=== PATIENT | male | born 1940 | race African-American/Black ===

== ENCOUNTER 2016-09-07 16:14 | Inpatient (IN) | payer MEDICARE, MEDICAID ==
[~2016-09-07] VITALS: Ht 185.4 cm; Wt 95.3 kg
[2016-09-07] VITALS (8 sets, daily range): BP systolic 64–107; BP diastolic 17–60
[~2016-09-07 16:14] MED LIST: ADVIL100 M2 ORAL; AMBIEN10 MG ORAL; CIPROFLOXACIN250 MG PO; DOCUSATE SODIU100 MG GT; DOCUSATE SODIU100 MG ORAL; FERROUS SULFAT325 MG ORAL; HYTRIN5 MG PO; IBUPROFEN200 M2 GT; LACTULOSE20 GM/301 GT; MIRALAX17 G2 ORAL; MORPHINE SU2 MG/1 M1 IV; OSMOLITE GT; POLYETHYLENE GL17 GM GT; RANITIDINE HCL150 MG GT; TYLENOL650 MG/20. GT; ZANTAC150 MG ORAL; ZINC OXIDE30 GM TOPIC
[2016-09-07] MEDS ORDERED: SULFAMETHOXAZO480 ML ORAL (16:18)
--- NOTE | 2016-09-07 16:25 | Emergency Room Report ---
History of Present Illness General Chief Complaint: Seizure Source: Family Member, EMS Present Illness HPI The patient presents with a witnessed tonic-clonic seizure. This is new onset for him. 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 H/O strokes in the past. No further history is available. See hospital course. Allergies: Coded Allergies: NO KNOWN ALLERGIES (Unverified Allergy, Unknown, 07/06/15) Patient History Limited by: medical condition Past Medical History: see triage record Past Surgical History: other - G tube Social History Narrative at home with senior clinical study manager Reviewed Nursing Documentation: PMH: Agreed, PSxH: Agreed Nursing Documentation-PMH Hx Cardiac Problems: No Hx Cancer: No Hx Gastrointestinal Problems: Yes - G-TUBE Hx Neurological Problems: Yes Hx Cerebrovascular Accident: Yes - 2005 Hx Transient Ischemic Attacks: Yes Hx Dementia: Yes Hx Alzheimer's Disease: Yes Hx Memory Loss: Yes Hx Concentration Difficulty: Yes Hx Speech Problem: Yes Hx Dysphasia: Yes Hx Weakness: Yes Review of Systems All Other Systems: limited Physical Exam Vital Signs Date Time Temp Pulse Resp B/P Pulse Ox O2 Delivery O2 Flow Rate FiO2 09/07/16 16:13 95.9 88 16 126/60 98 Room Air Eyes: bilateral eye other - eyes closed ENT: moist mucus membranes - poor dentition Neck: supple - with some rigidity Respiratory: lungs clear, normal breath sounds Cardiovascular #1: regular rate, rhythm Cardiovascular #2: 2+ radial (L) Gastrointestinal: abnormal bowel sounds - decreased, other - G tube Musculoskeletal: other - contractures UE bilaterally Neurologic: motor weakness - and increased tone, Babinski, other - not respond to painful stimuli Psychiatric: other - unresponsive Reflexes: 2+ knee (R), 2+ knee (L) Skin: normal inspection, no rash Medical Decision Making Diagnostic Impression: Primary Impression: New onset seizure Additional Impressions: Hypotension Qualified Codes: I95.9 - Hypotension, unspecified Sepsis Qualified Codes: A41.9 - Sepsis, unspecified organism UTI (urinary tract infection) Qualified Codes: N10 - Acute pyelonephritis ER Course Patient presents with new onset seizure. DDx: hypotension, bleed, mass, electrolyte abnormality, epilepsy amongst others. Emergent evaluation with labs , EKG, CT and CXR. Will start Keppra. CT with atrophy. CXR unremarkable. Labs with sl inc WBC, nl lactate, nl renal function, pyuria. Antibiotics begun. Hypotensive here. BP better with some of bolus in. Discussed with senior clinical study manager and grand daughter ( including code status). Patient was apparently in hospice. Admit telemetry, DNR, Dr. Mock. Laboratory Tests Test 09/07/16 16:40 09/07/16 17:27 09/07/16 18:45 White Blood Count 10.9 K/UL (4.8-10.8) H Red Blood Count 4.59 M/UL (4.70-6.10) L Hemoglobin 15.1 G/DL (14.2-18.0) Hematocrit 45.8 % (42.0-52.0) Mean Corpuscular Volume 100 FL (80-99) H Mean Corpuscular Hemoglobin 33.0 PG (27.0-31.0) H Mean Corpuscular Hemoglobin Concent 33.0 G/DL (32.0-36.0) Red Cell Distribution Width 11.9 % (11.6-14.8) Platelet Count 228 K/UL (150-450) Mean Platelet Volume 8.8 FL (6.5-10.1) Neutrophils (%) (Auto) 38.0 % (45.0-75.0) L Lymphocytes (%) (Auto) 49.0 % (20.0-45.0) H Monocytes (%) (Auto) 7.3 % (1.0-10.0) Eosinophils (%) (Auto) 4.8 % (0.0-3.0) H Basophils (%) (Auto) 0.9 % (0.0-2.0) Sodium Level 134 mEQ/L (135-145) L Potassium Level 3.7 mEQ/L (3.4-4.9) Chloride Level 93 mEQ/L (98-107) L Carbon Dioxide Level 25 mEQ/L (20-30) Anion Gap 16 (5-15) H Blood Urea Nitrogen 12 mg/dL (7-23) Creatinine 0.8 mg/dL (0.7-1.2) Estimate Glomerular Filtration Rate mL/min (>60) Glucose Level 94 mg/dL (74-106) Calcium Level 9.0 mg/dL (8.6-10.2) Total Bilirubin 0.6 mg/dL (0.0-1.2) Aspartate Amino Transferase (AST) 31 U/L (5-40) Alanine Aminotransferase (ALT) 35 U/L (3-41) Alkaline Phosphatase 91 U/L (40-129) Total Creatine Kinase 95 U/L (38-174) Troponin I < 0.30 ng/mL (<=0.30) Total Protein 7.3 g/dL (6.6-8.7) Albumin 3.5 g/dL (3.5-5.2) Globulin 3.8 g/dL Albumin/Globulin Ratio 0.9 (1.0-2.7) L Urine Color Yellow Urine Appearance Clear Urine pH 8 (4.5-8.0) Urine Specific [place] 1.010 (1.005-1.035) Urine Protein 1+ (NEGATIVE) H Urine Glucose (UA) Negative (NEGATIVE) Urine Ketones Negative (NEGATIVE) Urine Occult Blood Negative (NEGATIVE) Urine Nitrite Positive (NEGATIVE) H Urine Bilirubin Negative (NEGATIVE) Urine Urobilinogen 1 MG/DL (0.0-1.0) H Urine Leukocyte Esterase 2+ (NEGATIVE) H Urine RBC 0-2 /HPF (0 - 0) H Urine WBC Tntc /HPF (0 - 0) H Urine Squamous Epithelial Cells Occasional /LPF Urine Bacteria Occasional /HPF (NONE) Urine Opiates Screen Negative (NEGATIVE) Urine Barbiturates Screen Negative (NEGATIVE) Phencyclidine (PCP) Screen Negative (NEGATIVE) Urine Amphetamines Screen Negative (NEGATIVE) Urine Benzodiazepines Screen Negative (NEGATIVE) Urine Cocaine Screen Negative (NEGATIVE) Urine Marijuana (THC) Screen Negative (NEGATIVE) Lactic Acid Level 1.30 mmol/L (0.66-2.22) EKG Diagnostic Results Rate: normal Rhythm: NSR ST Segments: no acute changes Rhythm Strip Diag. Results EP Interpretation: yes Rhythm: NSR, other - PAC and PVCs rate 93 Chest X-Ray Diagnostic Results EP Interpretation: Yes Findings: no consolidation, no effusion, no pneumothorax, other - inc cor Number of Views: 1 CT/MRI/US Diagnostic Results CT/MRI/US Diagnostic Results : Imaging Test Ordered: head Impression atrophy Status: improved Disposition: ADMITTED INPATIENT Condition: Serious Pee Grubbs M.D. Sep 07, 2016 16:25
[2016-09-07] MEDS ORDERED: levETIRAcetam 500 MG in D5W 110 ML IV ONE (16:30)
[2016-09-07 16:53] LABS: BASOPHILS % (AUTO) 0.9 % (0.0-2.0); EOSINOPHILS % (AUTO) 4.8 % (0.0-3.0); MEAN CORPUSCULAR VOLUME 100 FL (80-99); MEAN PLATELET VOLUME 8.8 FL (6.5-10.1); MONOCYTES % (AUTO) 7.3 % (1.0-10.0); PLATELET COUNT 228 K/UL (150-450); RED BLOOD COUNT 4.59 M/UL (4.70-6.10); RED CELL DISTRIBUTION WIDTH 11.9 % (11.6-14.8); WHITE BLOOD COUNT 10.9 K/UL (4.8-10.8)
[2016-09-07] MEDS ORDERED: levETIRAcetam 500mg vial IV ONE (17:00)
[2016-09-07 17:09] LABS: ALANINE AMINOTRANSFERASE 35 U/L (3-41); ALBUMIN/GLOBULIN RATIO 0.9 (1.0-2.7); ANION GAP 16 (5-15); ASPARTATE AMINO TRANSFERASE 31 U/L (5-40); CARBON DIOXIDE 25 mEQ/L (20-30); CHLORIDE 93 mEQ/L (98-107); CREATININE 0.8 mg/dL (0.7-1.2); HEMOLYSIS 10; POTASSIUM 3.7 mEQ/L (3.4-4.9); SODIUM 134 mEQ/L (135-145); TOTAL PROTEIN 7.3 g/dL (6.6-8.7); TROPONIN I < 0.30 ng/mL (<=0.30)
[2016-09-07 17:47] LABS: APPEARANCE,URINE CLEAR; KETONES,URINE NEGATIVE (NEGATIVE); LEUKOCYTE ESTERASE ,URINE 2+ (NEGATIVE); NITRITE,URINE POSITIVE (NEGATIVE); PH,URINE 8 (4.5-8.0); PROTEIN,URINE 1+ (NEGATIVE); UROBILINOGEN,URINE 1 MG/DL (0.0-1.0)
[2016-09-07 18:07] LABS: RBC,URINE 0-2 /HPF (0 - 0); WBC,URINE TNTC /HPF (0 - 0)
[2016-09-07 18:08] LABS: BACTERIA,URINE OCCASIONAL /HPF; SQUAMOUS EPITHELIAL CELL,UR OCCASIONAL /LPF (NONE/OCC)
[2016-09-07] MEDS ORDERED: cefTRIAXone 1 GM in NS 55 ML IVPB ONE (18:45)
[2016-09-08 00:30] VITALS: BP 97/65
[2016-09-08] MEDS ORDERED: cefTRIAXone 1 GM in D5W 55 ML IVPB SCH ×2 (00:45→18:00)
[2016-09-08] MEDS ORDERED: Polyethylene Glycol 238gm bottle ORAL ONE (01:45)
[2016-09-08] MEDS: D5NS 1,000 ML IV SCH ×2 (02:16→13:59)
[2016-09-08 04:16] VITALS: BP 93/63
[2016-09-08 07:39] LABS: BASOPHILS % (AUTO) 0.5 % (0.0-2.0); EOSINOPHILS % (AUTO) 3.2 % (0.0-3.0); LYMPHOCYTES % (AUTO) 27.1 % (20.0-45.0); MEAN CORPUSCULAR HEMOGLOBIN 33.2 PG (27.0-31.0); MEAN CORPUSCULAR HGB CONC 33.5 G/DL (32.0-36.0); MEAN CORPUSCULAR VOLUME 99 FL (80-99); MEAN PLATELET VOLUME 9.5 FL (6.5-10.1); MONOCYTES % (AUTO) 7.6 % (1.0-10.0); NEUTROPHILS % (AUTO) 61.7 % (45.0-75.0); PLATELET COUNT 189 K/UL (150-450); RED BLOOD COUNT 3.98 M/UL (4.70-6.10); RED CELL DISTRIBUTION WIDTH 11.6 % (11.6-14.8); WHITE BLOOD COUNT 7.1 K/UL (4.8-10.8)
[2016-09-08 08:02] LABS: ANION GAP 11 (5-15); CALCIUM 8.2 mg/dL (8.6-10.2); CARBON DIOXIDE 24 mEQ/L (20-30); CHLORIDE 103 mEQ/L (98-107); CREATININE 0.6 mg/dL (0.7-1.2); HEMOLYSIS 4; POTASSIUM 3.9 mEQ/L (3.4-4.9); SODIUM 138 mEQ/L (135-145)
[2016-09-08 08:09] LABS: CHOLESTEROL/HDL RATIO 2.6 (3.3-4.4)
[2016-09-08 08:13] LABS: THYROID STIMULATING HORMONE 2.39 uIU/mL (0.300-4.500)
[2016-09-08 08:37] LABS: HEMOGLOBIN A1C 4.2 % (< 6.0)
[2016-09-08 08:38] VITALS: BP 107/56
--- NOTE | 2016-09-08 09:58 | Diagnostic Imaging Report ---
Indications: Seizure Technique: Continuous helical CT imaging of the brain was performed with automatic exposure control on a Siemens sensation [address] scanner. Axial and coronal images were reconstructed at 5 mm slice thickness and interval. CTDI volume(s): 70 mGy Total DLP: 1485 mGy-cm Findings: Comparison: 03/12/2014 Extensive chronic microvascular ischemic changes throughout the bilateral white matter, diffuse atrophy with ventriculomegaly unchanged.. No evidence of mass or hemorrhage, other attenuation abnormality, mass effect, midline shift, hydrocephalus or increased intracranial pressure. Bone window images are unremarkable. Mucoperiosteal thickening currently noted throughout the paranasal sinuses with air-fluid levels. Bilateral Mastoid air cells are clear. IMPRESSION: No evidence of acute intracranial pathology, unchanged. Examination suboptimal for evaluation of first-time seizure. MRI of the brain without and with gadolinium, seizure protocol, recommended for more complete evaluation, as clinically indicated. Bilateral cerebral periventricular and deepwhite matter low attenuation, nonspecific, likely chronic microvascular ischemic in nature. Atrophy with ventriculomegaly, stable. Normal pressure hydrocephalus must be considered. Development of paranasal sinusitis, acute This correlates with Dr. Glover's preliminary report. The CT scanner at [facility] is accredited by the [employer] and the scans are performed using protocols designed to limit radiation exposure to as low as reasonably achievable to attain images of sufficient resolution adequate for diagnostic evaluation.
--- NOTE | 2016-09-08 10:09 | Diagnostic Imaging Report ---
Indications: SZ Technique: Portable AP chest Findings: Comparison: 08/08/15 Suboptimal inspiration, lordotic projection limits evaluation. Persistent mild elevation apparent right hemidiaphragm. Left costophrenic angle obscured: Right sharp. Cardiac silhouette remains enlarged. Pulmonary vasculature remains within normal limits. Linear densities right lung base. Visualized portions of left lung remain clear. IMPRESSION: Indistinctness of left costophrenic angle may be technically related. Atelectasis, infiltrate, or pleural effusion not excludable. Subsegmental atelectasis right lung base Cardiomegaly Persistent elevation apparent right hemidiaphragm
--- NOTE | 2016-09-08 10:22 | History & Physical ---
History and Physical History & Physicial patient is seen and examined. Dict # [id number] Angelina Mock MD Sep 08, 2016 10:22
--- NOTE | 2016-09-08 10:28 | General Progress Note ---
Assessment/Plan Status: stable Assessment/Plan 1- Sz d/o 2- CVA-Quadry Paresis 3- Dementia 4- UTI 5- GI-DVT Plan: Neuro-Psych consulted. current management Subjective ROS Limited/Unobtainable: Yes Allergies: Coded Allergies: NO KNOWN ALLERGIES (Unverified Allergy, Unknown, 07/06/15) Objective Last 24 Hour Vital Signs Date Time Temp Pulse Resp B/P Pulse Ox O2 Delivery O2 Flow Rate FiO2 09/08/16 08:38 97.5 70 20 107/56 97 Room Air 09/08/16 04:16 98.6 64 20 93/63 Room Air 09/08/16 03:26 67 09/08/16 00:30 98.8 68 19 97/65 97 Room Air 09/07/16 23:07 71 09/07/16 21:14 97.0 73 14 95/42 100 Nasal Cannula 4.0 09/07/16 20:50 97.0 73 14 95/42 100 Nasal Cannula 4.0 09/07/16 19:12 82 16 102/17 98 Nasal Cannula 4.0 09/07/16 18:58 82 16 90/60 98 Nasal Cannula 4.0 09/07/16 18:38 89 16 87/58 98 Nasal Cannula 4.0 09/07/16 18:13 95 16 78/39 95 Nasal Cannula 4.0 09/07/16 17:41 97.1 95 16 101/45 98 Room Air 09/07/16 16:50 89 16 107/50 98 Room Air 09/07/16 16:50 95 16 Room Air 09/07/16 16:47 95 16 64/22 98 Room Air 09/07/16 16:13 95.9 88 16 126/60 98 Room Air Intake and Output 09/07/16 09/08/16 19:00 07:00 Intake Total 2115 ml 535 ml Output Total 1000 ml Balance 2115 ml -465 ml Intake Oral 0 ml IV Total 2115 ml 535 ml Output Urine Total 1000 ml Laboratory Tests 09/07/16 16:40: White Blood Count 10.9H, Red Blood Count 4.59L, Hemoglobin 15.1, Hematocrit 45.8 , Mean Corpuscular Volume 100H, Mean Corpuscular Hemoglobin 33.0H, Mean Corpuscular Hemoglobin Concent 33.0, Red Cell Distribution Width 11.9, Platelet Count 228, Mean Platelet Volume 8.8, Neutrophils (%) (Auto) 38.0L, Lymphocytes ( %) (Auto) 49.0H, Monocytes (%) (Auto) 7.3, Eosinophils (%) (Auto) 4.8H, Basophils (%) (Auto) 0.9, Sodium Level 134L, Potassium Level 3.7, Chloride Level 93L, Carbon Dioxide Level 25, Anion Gap 16H, Blood Urea Nitrogen 12, Creatinine 0.8, Estimat Glomerular Filtration Rate , Glucose Level 94, Calcium Level 9.0, Total Bilirubin 0.6, Aspartate Amino Transf (AST/SGOT) 31, Alanine Aminotransferase (ALT/SGPT) 35, Alkaline Phosphatase 91, Total Creatine Kinase 95, Troponin I < 0.30, Total Protein 7.3, Albumin 3.5, Globulin 3.8, Albumin/ Globulin Ratio 0.9L 09/07/16 17:27: Urine Color Yellow, Urine Appearance Clear, Urine pH 8, Urine Specific [place] 1.010, Urine Protein 1+H, Urine Glucose (UA) Negative, Urine Ketones Negative, Urine Occult Blood Negative, Urine Nitrite PositiveH, Urine Bilirubin Negative, Urine Urobilinogen 1H, Urine Leukocyte Esterase 2+H, Urine RBC 0-2H, Urine WBC TntcH, Urine Squamous Epithelial Cells Occasional, Urine Bacteria Occasional, Urine Opiates Screen Negative, Urine Barbiturates Screen Negative, Phencyclidine (PCP) Screen Negative, Urine Amphetamines Screen Negative, Urine Benzodiazepines Screen Negative, Urine Cocaine Screen Negative, Urine Marijuana (THC) Screen Negative 09/07/16 18:45: Lactic Acid Level 1.30 09/08/16 05:55: White Blood Count 7.1, Red Blood Count 3.98L, Hemoglobin 13.2L, Hematocrit 39.5L , Mean Corpuscular Volume 99, Mean Corpuscular Hemoglobin 33.2H, Mean Corpuscular Hemoglobin Concent 33.5, Red Cell Distribution Width 11.6, Platelet Count 189, Mean Platelet Volume 9.5, Neutrophils (%) (Auto) 61.7, Lymphocytes (% ) (Auto) 27.1, Monocytes (%) (Auto) 7.6, Eosinophils (%) (Auto) 3.2H, Basophils (%) (Auto) 0.5, Sodium Level 138, Potassium Level 3.9, Chloride Level 103, Carbon Dioxide Level 24, Anion Gap 11, Blood Urea Nitrogen 8, Creatinine 0.6L, Estimat Glomerular Filtration Rate , Glucose Level 91, Calcium Level 8.2L, Hemoglobin A1c 4.2, Triglycerides Level 48, Cholesterol Level 137, LDL Cholesterol 74, HDL Cholesterol 53, Cholesterol/HDL Ratio 2.6L, Thyroid Stimulating Hormone (TSH) 2.390 Height (Feet): 6 Height (Inches): 1.00 Weight (Pounds): 210 General Appearance: WD/WN EENT: PERRL/EOMI Neck: supple Cardiovascular: normal rate Respiratory/Chest: lungs clear Abdomen: soft Extremities: non-tender Neurologic: assembler filters II-XII grossly normal Angelina Mock MD Sep 08, 2016 10:28
[2016-09-08] MEDS: Lactulose 20gm/30ml UDC ORAL SCH ×2 (10:56→13:59)
[2016-09-08] MEDS: Heparin 5000 units/ml inj SUBQ SCH ×2 (10:56→20:20)
--- NOTE | 2016-09-08 11:51 | Neurology Progress Note ---
Interim History Interim History ROS Limited/Unobtainable: Yes Objective Physical Exam Last Vital Signs Date Time Temp Pulse Resp B/P Pulse Ox O2 Delivery O2 Flow Rate FiO2 09/08/16 08:38 97.5 70 20 107/56 97 Room Air 09/07/16 21:14 4.0 Laboratory Tests Test 09/07/16 16:40 09/07/16 17:27 09/07/16 18:45 09/08/16 05:55 White Blood Count 10.9 K/UL (4.8-10.8) H 7.1 K/UL (4.8-10.8) Red Blood Count 4.59 M/UL (4.70-6.10) L 3.98 M/UL (4.70-6.10) L Hemoglobin 15.1 G/DL (14.2-18.0) 13.2 G/DL (14.2-18.0) L Hematocrit 45.8 % (42.0-52.0) 39.5 % (42.0-52.0) L Mean Corpuscular Volume 100 FL (80-99) H 99 FL (80-99) Mean Corpuscular Hemoglobin 33.0 PG (27.0-31.0) H 33.2 PG (27.0-31.0) H Mean Corpuscular Hemoglobin Concent 33.0 G/DL (32.0-36.0) 33.5 G/DL (32.0-36.0) Red Cell Distribution Width 11.9 % (11.6-14.8) 11.6 % (11.6-14.8) Platelet Count 228 K/UL (150-450) 189 K/UL (150-450) Mean Platelet Volume 8.8 FL (6.5-10.1) 9.5 FL (6.5-10.1) Neutrophils (%) (Auto) 38.0 % (45.0-75.0) L 61.7 % (45.0-75.0) Lymphocytes (%) (Auto) 49.0 % (20.0-45.0) H 27.1 % (20.0-45.0) Monocytes (%) (Auto) 7.3 % (1.0-10.0) 7.6 % (1.0-10.0) Eosinophils (%) (Auto) 4.8 % (0.0-3.0) H 3.2 % (0.0-3.0) H Basophils (%) (Auto) 0.9 % (0.0-2.0) 0.5 % (0.0-2.0) Sodium Level 134 mEQ/L (135-145) L 138 mEQ/L (135-145) Potassium Level 3.7 mEQ/L (3.4-4.9) 3.9 mEQ/L (3.4-4.9) Chloride Level 93 mEQ/L (98-107) L 103 mEQ/L (98-107) Carbon Dioxide Level 25 mEQ/L (20-30) 24 mEQ/L (20-30) Anion Gap 16 (5-15) H 11 (5-15) Blood Urea Nitrogen 12 mg/dL (7-23) 8 mg/dL (7-23) Creatinine 0.8 mg/dL (0.7-1.2) 0.6 mg/dL (0.7-1.2) L Estimat Glomerular Filtration Rate mL/min (>60) mL/min (>60) Glucose Level 94 mg/dL (74-106) 91 mg/dL (74-106) Calcium Level 9.0 mg/dL (8.6-10.2) 8.2 mg/dL (8.6-10.2) L Total Bilirubin 0.6 mg/dL (0.0-1.2) Aspartate Amino Transf (AST/SGOT) 31 U/L (5-40) Alanine Aminotransferase (ALT/SGPT) 35 U/L (3-41) Alkaline Phosphatase 91 U/L (40-129) Total Creatine Kinase 95 U/L (38-174) Troponin I < 0.30 ng/mL (<=0.30) Total Protein 7.3 g/dL (6.6-8.7) Albumin 3.5 g/dL (3.5-5.2) Globulin 3.8 g/dL Albumin/Globulin Ratio 0.9 (1.0-2.7) L Urine Color Yellow Urine Appearance Clear Urine pH 8 (4.5-8.0) Urine Specific [place] 1.010 (1.005-1.035) Urine Protein 1+ (NEGATIVE) H Urine Glucose (UA) Negative (NEGATIVE) Urine Ketones Negative (NEGATIVE) Urine Occult Blood Negative (NEGATIVE) Urine Nitrite Positive (NEGATIVE) H Urine Bilirubin Negative (NEGATIVE) Urine Urobilinogen 1 MG/DL (0.0-1.0) H Urine Leukocyte Esterase 2+ (NEGATIVE) H Urine RBC 0-2 /HPF (0 - 0) H Urine WBC Tntc /HPF (0 - 0) H Urine Squamous Epithelial Cells Occasional /LPF Urine Bacteria Occasional /HPF (NONE) Urine Opiates Screen Negative (NEGATIVE) Urine Barbiturates Screen Negative (NEGATIVE) Phencyclidine (PCP) Screen Negative (NEGATIVE) Urine Amphetamines Screen Negative (NEGATIVE) Urine Benzodiazepines Screen Negative (NEGATIVE) Urine Cocaine Screen Negative (NEGATIVE) Urine Marijuana (THC) Screen Negative (NEGATIVE) Lactic Acid Level 1.30 mmol/L (0.66-2.22) Hemoglobin A1c 4.2 % (< 6.0) Triglycerides Level 48 mg/dL (< 150) Cholesterol Level 137 mg/dL (< 200) LDL Cholesterol 74 mg/dL (60-99) HDL Cholesterol 53 mg/dL (> 60) Cholesterol/HDL Ratio 2.6 (3.3-4.4) L Thyroid Stimulating Hormone (TSH) 2.390 uIU/mL (0.300-4.500) Impression/Recommendations Problems: (1) Sepsis Status: stable Recommendations #[id number] VAZQUEZ RODRIGUEZ Sep 08, 2016 11:51
[2016-09-08 12:01] VITALS: BP 100/57
--- NOTE | 2016-09-08 14:52 | Consultation ---
Consult Note Consult Note ID CONSULT: Al# [id number] Assessment/Plan ASSESSMENT: 75 y/o male with: // Acute paranasal sinusitis // Probable UTI - UCx pending, h/o VSE.faecalis // Stage II sacral decubitus ulcer, not grossly infected - surveillance WCx pending // Leukocytosis, mild - resolved, afebrile // New onset seizures - neuro following - CT Head: No evidence of acute intracranial pathology. Bilateral cerebral periventricular and deepwhite matter low attenuation, nonspecific, likely chronic microvascular ischemic in nature. - h/o CVA // Dementia / chronic encephalopathy // Dysphagia SP PEG // Functional quadriplegia // VRE colonized // NKDA PLAN: - continue empiric rocephin d# 2 / . Ok to complete course with oral alternative at discharge - f/u cultures, adjust ABX accordingly - monitor CBC, temperatures - monitor BMP - seizure, aspiration precautions - wound care Thanks! Will follow MARY DUNCAN Sep 08, 2016 14:52
[2016-09-08] MEDS: DuoNeb 0.5-3(2.5)mg/3ml neb HHN SCH ×2 (15:53→18:57)
[2016-09-08 16:00] VITALS: BP 95/63
--- NOTE | 2016-09-08 16:07 | History and Physical Report ---
DATE OF ADMISSION: 09/07/2016 SOURCE OF INFORMATION: The patient and EMR. HISTORY OF PRESENT ILLNESS: The patient is a 75-year-old male. At the baseline, the patient not verbally communicate and the patient is a poor historian. However there was reported episode of tonic-clonic seizure. The patient has prior history of stroke and bedridden. REVIEW OF SYSTEMS: Unobtainable as detailed above. PAST MEDICAL HISTORY: Feeding tube placement, CVA 2005, transient ischemic attack, dementia, Alzheimer's disorder, dysphagia, anemia. PAST SURGICAL HISTORY: PEG tube feeding placement. HOME MEDICATIONS: Including ferrous sulfate, lactulose, ranitidine, Remainder of meds are reviewed and reconciled ALLERGIES: NKDA. SOCIAL HISTORY: The patient lives at home. No documented prior history of drug abuse, alcohol abuse, or smoking had been noted. The patient has 5 children. PHYSICAL EXAMINATION: VITAL SIGNS: Blood pressure 120/60, temperature 98.2, pulse oximetry 98% on room air, pulse rate 88. HEENT: Head and neck, atraumatic and normocephalic. CHEST: Clear to auscultation. HEART: S1 and S2. Regular rate and rhythm. ABDOMEN: Soft. Positive for PEG tube in place. No discharges. NEUROLOGY: The patient is not verbal. Dementia at baseline. MUSCULOSKELETAL: Atrophied musculature and quadriparesis. LABORATORY RESULTS: On 09/07/2016, WBC 10.9, platelets 228,000. Sodium 134, potassium 3.7, BUN 12, and creatinine 0.8. Urinalysis positive for bacteria, WBCs. Chest x-ray dated 09/07/2016 shows persistent elevation of the right hemidiaphragm at baseline. CT scan of the brain shows atrophy, negative for acute pathology. ASSESSMENT: 1. Seizure disorder, new diagnosis. 2. Cerebrovascular accident/quadriparesis, at baseline. 3. Dementia/nonverbal at baseline. 4. Anemia. 5. Chronic constipation. 6. Gastrointestinal and deep vein thrombosis prophylaxis. PLAN OF CARE: We will consult Neurology, Infectious Disease specialist, Dr. Norwood and Dr. Ballesteros. We will continue current empiric antibiotic, ceftriaxone. Seizure precautions. A 2D echo. Angelina Mock M.D. DR: Gabe JOB#: [id number] CC: JONATHAN
--- NOTE | 2016-09-08 16:14 | Wound Care Consultation ---
Wound Assessment Wound Assessment : Wound Present on Admission: Yes New Wound: No Status Change of Wound: No Wound Location Body Site Modif: mid Wound Location Body Site: sacral Wound Type: pressure ulcer Robert Test: Does not Robert Pressure Ulcer Stage: III Wound Thickness: Full Thickness Wound Length: 4.5 Wound Width: 4.5 Wound Depth: 0.3 Percent of Wound Warren/Red: 100 Wound Drainage Description: Serosanguineous Wound Drainage Amount: Scant Wound Drainage Odor: None/Absent Tissue Surrounding Wound: Denuded Wound General Appearance: Reddened Wound Comment #1 Sacral stage III pressure ulcer Recommendation -Cleanse with saline pat dry apply Triad cream cover with bordered gauze daily and PRN soiled/dislodged -Keep clean and dry -Turn and reposition -Low air loss overlay mattress -Optimize nutrition -Assess and f/u accordingly for any changes SHAKA ARELLANO RN Sep 08, 2016 16:14
[2016-09-08] MEDS: levETIRAcetam 500mg/5ml Liquid NG SCH ×2 (16:20→20:20)
--- NOTE | 2016-09-08 18:07 | Cardiology Report ---
APPROVED REPORT EKG Measurement Heart [id number] Sinus rhythm with premature ventricular complexes Left anterior fascicular block Septal infarct, age undetermined Abnormal ECG
[2016-09-08] MEDS: Lactulose 20gm/30ml UDC GT SCH (18:18)
--- NOTE | 2016-09-08 18:27 | Consultation ---
DATE OF CONSULTATION: 09/08/2016 NEUROLOGICAL CONSULTATION CONSULTING PHYSICIAN: Cash Norwood M.D. REQUESTING PHYSICIAN: Angelina Mock M.D. HISTORY OF PRESENT ILLNESS: This is a 75-year-old man seen in neurological consultation to evaluate a new onset of seizure activities. The patient, who has no history of seizures in the past, was having a witnessed generalized clonic-tonic seizure episode. Paramedics were called to the scene. His vital signs in the field were stable, blood pressure 123/61. He was found to be in bed at home after having a seizure. He was unable to speak. He was then brought to emergency room. Vital signs on admission remains stable. He was afebrile. His initial laboratory studies included CBC study with WBC of 10.9. Elevated MCV and MCH. Chemistry panel unremarkable except chloride 93, anion gap of 16, normal troponin, and normal lipid panel. Toxicology panel was negative. Urinalysis, WBC too numerous to count and 2+ leukocyte esterase. His imaging studies included a chest x-ray revealing cardiomegaly with atelectasis. Infiltrate or pleural effusion not excludable. There was persistent elevation of the right hemidiaphragm. The CAT scan of the brain done and this revealed bilateral cerebral periventricular deep white matter low attenuation, nonspecific, most likely chronic microvascular disease with atrophy and ventriculomegaly, and paranasal sinusitis, acute. Following admission, the patient was maintained on IV fluids, antibiotics, and he was given initial dose of Keppra 500 mg IV. PAST MEDICAL HISTORY: According to the patient's daughter, who was present during this examination, he has a history of multiple strokes in the past: He has a history of progressive dementia and diagnosed with Alzheimer disease. He is on G-tube feeding. He is bedridden and noncommunicative. MEDICATIONS: Treatment included lactulose, ranitidine, ferrous sulfate, and sulfamethoxazole. ALLERGIES: None reported. SOCIAL HISTORY: Lives at home. He has lipoh-gyc-aylnv caregivers. There is no evidence of previous alcohol or drug abuse. FAMILY HISTORY: Noncontributory. REVIEW OF SYMPTOMS: Unable to obtain due to the patient's status. PHYSICAL EXAMINATION: GENERAL: A well-developed, well-nourished man, not in acute distress, lying in bed, and appears to be asleep with eyes closed. VITAL SIGNS: His blood pressure is 107/56 and temperature 97.5 degrees. HEENT: Head, normocephalic. There is no evidence of injuries. Eyes, ears, and throat are clear. NECK: Rigid in all directions. MUSCULOSKELETAL: Remarkable for flexor contraction of both upper lower extremities, predominantly on the left. Peripheral pulses 1+ symmetric. SKIN: Unremarkable. No rash. MENTAL STATUS: The patient is unresponsive to voice, on sternal rub. He is defensively moving his right arm. He is maintaining eyes closed. CRANIAL NERVE II: Pupils appear to be equal although the patient maintained eyes closed and it was difficult to examine. CRANIAL NERVE V: Normal corneal responses. CRANIAL NERVE VII: No gross asymmetry. CRANIAL NERVE VIII: Unable to test, but reportedly normal hearing. CRANIAL NERVES IX THROUGH XII: Absent gag response. MOTOR EXAMINATION: Significant rigidity bilaterally, but predominantly on the left with flexor contractures of left arm, left leg, left wrist, and hand. There is some minor spontaneous movement on the left and more pronounced on the right. Deep tendon reflexes 3+, higher on the left. Plantar responses are mute bilaterally. SENSORY EXAMINATION: No response to pin stimulation. IMPRESSION: This is a 75-year-old man with end-stage senile dementia, status post multiple strokes with a quadriparesis, left more than right, now presenting with a new onset of generalized seizure activity most likely contributed by underlying urinary tract infection/urosepsis. RECOMMENDATIONS: 1. Continue with IV fluids and antibiotics to cover underlying infection. 2. Continue with the Keppra 500 mg b.i.d., sprinkles through G-tube. 3. Observe for any further paroxysmal events. 4. Palliative care only. Thank you for allowing me to see this interesting patient in neurological consultation. Cash Norwood M.D. DR: NELLY JOB#: [id number] CC:
[2016-09-08 20:00] VITALS: BP 91/51
--- NOTE | 2016-09-08 21:17 | Consultation ---
DATE OF CONSULTATION: 09/08/2016 INFECTIOUS DISEASE CONSULTATION: REQUESTING PHYSICIAN: Angelina Mock M.D. REASON FOR CONSULTATION: UTI. HISTORY OF PRESENT ILLNESS: This is a 75-year-old demented bedbound male with a history of a stroke admitted on 09/07/2016 with new onset of seizures. CT of the head shows no acute findings and bilateral cerebral periventricular and deep white matter low attenuation, likely chronic microvascular ischemic in nature. He has evidence of mild leukocytosis and no fevers. Urinalysis suggests possible UTI. Urine culture is pending. Paranasal sinusitis also has seen on CAT scanning. He has been started on empiric Rocephin and ID now consulted to assist in management. PAST MEDICAL HISTORY: 1. Stroke. 2. Dementia. 3. Functional quadriplegia. 4. Dysphagia. 5. Anemia of chronic disease. 6. Sick sinus syndrome. 7. GERD. 8. Diastolic dysfunction grade 1. PAST SURGICAL HISTORY: 1. PEG tube. 2. Cataract surgery. MEDICATIONS: 1. Rocephin day #2. 2. Keppra. 3. Heparin. 4. Zantac. 5. Lactulose. ALLERGIES: No known drug allergies. SOCIAL HISTORY: The patient has a caregiver at home. No active tobacco, alcohol, or illicit drug abuse. FAMILY HISTORY: Noncontributory. REVIEW OF SYSTEMS: Unable to obtain. PHYSICAL EXAMINATION: GENERAL: No apparent distress. Nontoxic appearing. CARDIOVASCULAR: Regular rate and rhythm. No murmurs. PULMONARY: Clear to auscultation bilaterally. ABDOMEN: Bowel sounds present. Soft, nondistended, and nontender. EXTREMITIES: No edema. LABORATORY DATA: White blood cell count 7.1 decreased from 10.9, hemoglobin 13.2, and platelets 189,000. Sodium 138, potassium 3.9, chloride 103, bicarbonate 24, BUN 8, and creatinine 0.6. Lactic acid 1.3. Liver function tests within normal limits. Troponin negative x1. Urine drug screen negative. MICROBIOLOGY: 1. On 09/07/2016, urine culture pending. 2. On 09/08/2016, wound culture pending. IMAGIN. On 09/07/2016, chest x-ray possible left lower lobe atelectasis versus infiltrate versus effusion. 2. On 09/07/2016, CT of the head, acute paranasal sinusitis, no acute intracranial pathology. 3. On 09/07/2016, echocardiogram ejection fraction 50% to 55%, mild aortic and pulmonic regurgitation, trace mitral and tricuspid regurgitation, and grade 1 diastolic dysfunction. ASSESSMENT: 1. Acute paranasal sinusitis. 2. Probable urinary tract infection. Urine culture is pending. history of growth of vancomycin sensitive Enterococcus faecalis. 3. Stage II sacral decubitus ulcer, not grossly infected. Surveillance wound culture is pending. 4. Leukocytosis, mild now resolved and afebrile. 5. New onset seizures. Neurology is following. 6. Dementia and chronic encephalopathy. 7. Dysphagia, status post percutaneous endoscopic gastrostomy tube placement. 8. Functional quadriplegia. 9. Vancomycin-resistant Enterococcus colonized. 10. No known drug allergies. PLAN: 1. Continue empiric Rocephin day #2 of 10. Okay to complete course with oral alternative at discharge. 2. Follow up cultures and adjust antibiotics accordingly. 3. Monitor CBC and temperatures. 4. Monitor BMP. 5. Seizure and aspiration precautions. 6. Wound care. Thank you. We will follow. Jerry Hall M.D. DR: Odalis JOB#: [id number] CC: Angelina Mock M.D.; Fax#: [phone] Kwok M.D; Fax#: [phone]
[2016-09-09 00:36] VITALS: BP 93/51
[2016-09-09] MEDS: DuoNeb 0.5-3(2.5)mg/3ml neb HHN SCH ×3 (01:31→12:54)
[2016-09-09] MEDS: D5NS 1,000 ML IV SCH (02:33)
[2016-09-09 04:16] VITALS: BP 94/44
[2016-09-09 08:00] VITALS: BP 127/59
[2016-09-09 08:27] LABS: ANION GAP 12 (5-15); CARBON DIOXIDE 25 mEQ/L (20-30); CHLORIDE 103 mEQ/L (98-107); CREATININE 0.7 mg/dL (0.7-1.2); HEMOLYSIS 6; POTASSIUM 3.3 mEQ/L (3.4-4.9); SODIUM 140 mEQ/L (135-145)
[2016-09-09 08:49] LABS: BASOPHILS % (AUTO) 0.9 % (0.0-2.0); EOSINOPHILS % (AUTO) 5.1 % (0.0-3.0); LYMPHOCYTES % (AUTO) 35.5 % (20.0-45.0); MEAN CORPUSCULAR HEMOGLOBIN 32.9 PG (27.0-31.0); MEAN CORPUSCULAR HGB CONC 32.6 G/DL (32.0-36.0); MEAN CORPUSCULAR VOLUME 101 FL (80-99); MEAN PLATELET VOLUME 7.9 FL (6.5-10.1); MONOCYTES % (AUTO) 10.5 % (1.0-10.0); NEUTROPHILS % (AUTO) 47.9 % (45.0-75.0); PLATELET COUNT 180 K/UL (150-450); RED BLOOD COUNT 3.65 M/UL (4.70-6.10); RED CELL DISTRIBUTION WIDTH 11.9 % (11.6-14.8); WHITE BLOOD COUNT 5.6 K/UL (4.8-10.8)
[2016-09-09] MEDS: Lactulose 20gm/30ml UDC GT SCH ×2 (09:30→12:37)
[2016-09-09] MEDS: levETIRAcetam 500mg/5ml Liquid NG SCH (09:30)
[2016-09-09] MEDS: Heparin 5000 units/ml inj SUBQ SCH (09:32)
[2016-09-09] MEDS ORDERED: KCl 10% 40mEq/30ml liquid GT ONE (11:00)
[2016-09-09 12:00] VITALS: BP 120/60
--- NOTE | 2016-09-09 12:46 | General Progress Note ---
Assessment/Plan Status: stable Assessment/Plan 1- Sz d/o 2- CVA-Quadry Paresis 3- Dementia 4- UTI 5- GI-DVT Plan: Ok to discharge on Keppra 500 mg bid, per neurology. Subjective ROS Limited/Unobtainable: Yes Allergies: Coded Allergies: NO KNOWN ALLERGIES (Unverified Allergy, Unknown, 07/06/15) Objective Last 24 Hour Vital Signs Date Time Temp Pulse Resp B/P Pulse Ox O2 Delivery O2 Flow Rate FiO2 09/09/16 08:00 85 09/09/16 08:00 97.4 54 24 127/59 98 Room Air 09/09/16 07:16 75 18 99 Room Air 21 09/09/16 07:10 21 09/09/16 07:10 73 18 98 Room Air 21 09/09/16 04:16 98.8 88 20 94/44 96 Room Air 09/09/16 03:54 89 09/09/16 01:40 71 18 98 Room Air 21 09/09/16 01:33 21 09/09/16 01:32 68 16 97 Room Air 21 09/09/16 00:36 97.9 69 19 93/51 98 Room Air 09/08/16 23:44 76 09/08/16 20:00 97.9 71 14 91/51 100 Simple Mask 7.0 09/08/16 20:00 82 09/08/16 19:05 68 16 99 Room Air 21 09/08/16 18:59 70 16 98 Room Air 21 09/08/16 18:59 21 09/08/16 16:03 72 16 99 Room Air 21 09/08/16 16:00 79 09/08/16 16:00 97.9 122 14 95/63 100 Room Air 09/08/16 15:50 70 16 99 Room Air 21 09/08/16 15:50 70 16 Room Air 21 Intake and Output 09/08/16 09/09/16 19:00 07:00 Intake Total 400 ml 1350 ml Output Total 300 ml 1150 ml Balance 100 ml 200 ml Free Water 100 ml IV Total 400 ml 1070 ml Tube Feeding 180 ml Output Urine Total 300 ml 1150 ml # Bowel Movements 1 Laboratory Tests 09/09/16 07:15: White Blood Count 5.6, Red Blood Count 3.65L, Hemoglobin 12.0L, Hematocrit 36.9L , Mean Corpuscular Volume 101H, Mean Corpuscular Hemoglobin 32.9H, Mean Corpuscular Hemoglobin Concent 32.6, Red Cell Distribution Width 11.9, Platelet Count 180, Mean Platelet Volume 7.9, Neutrophils (%) (Auto) 47.9, Lymphocytes (% ) (Auto) 35.5, Monocytes (%) (Auto) 10.5H, Eosinophils (%) (Auto) 5.1H, Basophils (%) (Auto) 0.9, Sodium Level 140, Potassium Level 3.3L, Chloride Level 103, Carbon Dioxide Level 25, Anion Gap 12, Blood Urea Nitrogen 7, Creatinine 0.7, Estimat Glomerular Filtration Rate , Glucose Level 108H, Calcium Level 8.0L Height (Feet): 6 Height (Inches): 1.00 Weight (Pounds): 210 General Appearance: no apparent distress EENT: other - eyes open. Not following the commnads, at baseline Neck: supple Cardiovascular: normal rate Respiratory/Chest: lungs clear Abdomen: soft, other - PEG t in place Extremities: other - QuadryParesis Neurologic: disoriented, other - Not verbal Angelina Mock MD Sep 09, 2016 12:46
[2016-09-09] MEDS ORDERED: Sterile Water Irrig 1000ml IRRIG ONE (16:08)
[2016-09-09] MEDS ORDERED: Tubing IV Secondary IV ONE (16:08)
[2016-09-09] MEDS ORDERED: D5NS 1000ml IV ONE (16:08)
--- NOTE | 2016-09-09 16:17 | Infectious Diseases Prog Note ---
Assessment/Plan Assessment/Plan ASSESSMENT: 75 y/o male with: // Acute paranasal sinusitis // Probable UTI - UCx GNR - h/o VSE.faecalis // Stage II sacral decubitus ulcer, not grossly infected - surveillance WCx pending // Leukocytosis, mild - resolved, afebrile // Wnd cx : GPC // New onset seizures - neuro following - CT Head: No evidence of acute intracranial pathology. Bilateral cerebral periventricular and deepwhite matter low attenuation, nonspecific, likely chronic microvascular ischemic in nature. - h/o CVA // Dementia / chronic encephalopathy // Dysphagia SP PEG // Functional quadriplegia // VRE colonized // NKDA PLAN: - continue empiric rocephin d# . - f/u cultures, adjust ABX accordingly - monitor CBC, temperatures - monitor BMP - seizure, aspiration precautions - wound care Subjective Constitutional: Denies: anorexia, chills, drenching sweats, fatigue, fever, no symptoms, other Allergies: Coded Allergies: NO KNOWN ALLERGIES (Unverified Allergy, Unknown, 07/06/15) Objective Vital Signs Last 24 Hour Vital Signs Date Time Temp Pulse Resp B/P Pulse Ox O2 Delivery O2 Flow Rate FiO2 09/09/16 13:08 77 18 99 Room Air 09/09/16 12:56 86 18 96 Room Air 09/09/16 12:00 77 09/09/16 12:00 97.6 60 20 120/60 98 Room Air 09/09/16 08:00 85 09/09/16 08:00 97.4 54 24 127/59 98 Room Air 09/09/16 07:16 75 18 99 Room Air 09/09/16 07:10 21 09/09/16 07:10 73 18 98 Room Air 21 09/09/16 04:16 98.8 88 20 94/44 96 Room Air 09/09/16 03:54 89 09/09/16 01:40 71 18 98 Room Air 09/09/16 01:33 21 09/09/16 01:32 68 16 97 Room Air 09/09/16 00:36 97.9 69 19 93/51 98 Room Air 09/08/16 23:44 76 09/08/16 20:00 97.9 71 14 91/51 100 Simple Mask 7.0 09/08/16 20:00 82 09/08/16 19:05 68 16 99 Room Air 21 09/08/16 18:59 70 16 98 Room Air 21 09/08/16 18:59 21 Height (Feet): 6 Height (Inches): 1.00 Weight (Pounds): 210 HEENT: anicteric Respiratory/Chest: no respiratory distress Cardiovascular: no gallop/murmur Skin: no rash Microbiology Date/Time Source Procedure Growth Status 09/08/16 06:50 Nasal Nares MRSA Culture - Final NO METHICILLIN RESISTANT STAPH AUREUS... Complete 09/07/16 17:27 Urine,Clean Catch Urine Culture - Preliminary Gram Negative Link Resulted 09/08/16 05:55 Sacral Wound Gram Stain - Final Resulted 09/08/16 05:55 Wound Culture - Preliminary Gram Positive Cocci Resulted Laboratory Tests Test 09/09/16 07:15 White Blood Count 5.6 K/UL (4.8-10.8) Red Blood Count 3.65 M/UL (4.70-6.10) L Hemoglobin 12.0 G/DL (14.2-18.0) L Hematocrit 36.9 % (42.0-52.0) L Mean Corpuscular Volume 101 FL (80-99) H Mean Corpuscular Hemoglobin 32.9 PG (27.0-31.0) H Mean Corpuscular Hemoglobin Concent 32.6 G/DL (32.0-36.0) Red Cell Distribution Width 11.9 % (11.6-14.8) Platelet Count 180 K/UL (150-450) Mean Platelet Volume 7.9 FL (6.5-10.1) Neutrophils (%) (Auto) 47.9 % (45.0-75.0) Lymphocytes (%) (Auto) 35.5 % (20.0-45.0) Monocytes (%) (Auto) 10.5 % (1.0-10.0) H Eosinophils (%) (Auto) 5.1 % (0.0-3.0) H Basophils (%) (Auto) 0.9 % (0.0-2.0) Sodium Level 140 mEQ/L (135-145) Potassium Level 3.3 mEQ/L (3.4-4.9) L Chloride Level 103 mEQ/L (98-107) Carbon Dioxide Level 25 mEQ/L (20-30) Anion Gap 12 (5-15) Blood Urea Nitrogen 7 mg/dL (7-23) Creatinine 0.7 mg/dL (0.7-1.2) Estimat Glomerular Filtration Rate mL/min (>60) Glucose Level 108 mg/dL (74-106) H Calcium Level 8.0 mg/dL (8.6-10.2) L Current Medications Medications (Trade) Dose Ordered Sig/Benrardo Route PRN Reason Start Time Stop Time Status Last Admin Dose Admin Albuterol/ Ipratropium (DuoNeb 0.5-3(2.5)mg/3ml) 3 ml Q6HRT HHN 09/08/16 15:30 09/13/16 15:29 09/09/16 12:54 Ceftriaxone Sodium 1 gm/ Dextrose 55 ml @ 110 mls/hr Q24H IVPB 09/08/16 18:00 09/15/16 17:59 09/08/16 18:18 Dextrose/Sodium Chloride 1,000 ml @ 80 mls/hr [id number] IV 09/08/16 02:00 10/08/16 01:59 09/09/16 02:33 Heparin Sodium (Porcine) (Heparin 5000 units/ml) 5,000 units EVERY 12 HOURS SUBQ 09/08/16 09:00 10/08/16 08:59 09/09/16 09:32 Lactulose (Cephulac) 20 gm THREE TIMES A DAY GT 09/08/16 18:00 10/10/16 08:59 09/09/16 12:37 Levetiracetam (Keppra) 500 mg Q12HR NG 09/08/16 14:00 10/08/16 13:59 09/09/16 09:30 Ranitidine HCl 150 mg 150 mg TWICE A DAY ORAL 09/08/16 09:00 10/08/16 08:59 09/09/16 09:30 Sodium Chloride (NS) 500 ml @ 999 mls/hr NEEDED PRN IV for sbp < 90 09/08/16 08:45 10/08/16 08:44 MARYANNE YIN M.D. Sep 09, 2016 16:17
--- NOTE | 2016-09-10 11:45 | Cardiology Report ---
APPROVED REPORT EXAM: Two-dimensional and M-mode echocardiogram with Doppler and color Doppler. INDICATION CVA/TIA M-Mode DIMENSIONS IVSd1.4 (0.7-1.1cm)Left Atrium (MM)4.6 (1.6-4.0cm) LVDd5.1 (3.5-5.6cm)Aortic Root4.0 (2.0-3.7cm) PWd1.0 (0.7-1.1cm)Aortic Cusp Exc.2.0 (1.5-2.0cm) LVDs3.0 (2.5-4.0cm) PWs1.9 cm Normal left ventricular chamber size, systolic function and wall motion. Left ventricular ejection fraction estimated to be 50-55%. Mild left ventricular hypertrophy. No evidence of pericardial effusion. All other cardiac chamber sizes are within normal limits. Mild focal aortic valve sclerosis with adequate cusp excursion. Mildly thickened mitral valve leaflets with normal excursion. Mild mitral annulus and aortic root calcification. Pulmonic valve not well visualized. Normal tricuspid valve structure. IVC not obtainable. A color flow and spectral Doppler study was performed and revealed: Mild aortic regurgitation. No aortic stenosis. Trace mitral regurgitation. Mitral diastolic velocities suggest reduced left ventricular relaxation (Grade I). Trace tricuspid regurgitation. Tricuspid systolic velocities suggests peak right ventricular systolic pressure of 18 mmHg. Mild pulmonic regurgitation present.
--- NOTE | 2016-09-11 10:29 | Discharge Summary ---
Discharge Summary Hospital Course Date of Admission Sep 07, 2016 at 16:43 Date of Discharge Sep 09, 2016 at 16:59 Admitting Diagnosis new onset seizures HPI Kurt Cason is a 75 year old male who was admitted on Sep 07, 2016 at 16:43 for New Onset Seizures Hospital Course dc summary dictated ##[id number] Discharge Medications Continued Medications: Ferrous Sulfate* (Ferrous Sulfate*) 325 Mg Tablet 325 MG ORAL DAILY, #30 TAB 0 Refills Lactulose (Lactulose*) 20 Gm/30 Ml Solution 30 ML GT, ML 0 Refills Polyethylene Glycol 3350* (Polyethylene Glycol 3350*) 17 Gm Powd.pack 17 GM GT EVERY 72 HOURS, PACKET Ranitidine Hcl* (Zantac*) 150 Mg Tab 150 MG GT TWICE A DAY for 14 Days, TAB Sulfamethoxazole/Trimethoprim (Sulfamethoxazole-Tmp Susp) 473 Ml Oral.susp 5 ML ORAL TWICE A DAY, ML Discharge Condition Upon Discharge: stable Discharge Disposition Patient was discharged to Home with Hospice care Discharge Diagnoses: Yobany (Azra Pedersen NP Sep 11, 2016 10:29
--- NOTE | 2016-09-12 02:57 | Discharge Summary 2 SIG ---
DATE OF ADMISSION: 09/07/2016 DATE OF DISCHARGE: 09/09/2016 HISTORY OF PRESENT ILLNESS: 75-year-old male with underlying history of end-stage dementia and history of multiply CVA , at baseline with vegetative state, was brought by ambulance due to the weakness and tonic-clonic seizures. Patient lives at home with electronic plotting system operator, In the emergency department, initial workup was done. CT of the head revealed no acute intracranial pathology, but was consistent with atrophy and chronic cerebrovascular disease. The patient noted to be hypotensive with blood pressure 64/22. Intravenous bolus provided urgently and blood pressure improved. The patient noted to have urinalysis with pyuria and positive nitrites. Septic workup initiated. The patient was started on empiric antibiotics. The patient's condition was discussed with electronic plotting system operator and daughter who was present at the bedside. The patient with DNR status. The patient was admitted with a diagnosis of ADMITTING DIAGNOSES: new onset of seizure sepsis urinary tract infection hypertension history of multiply CVA end-stage dementia. HOSPITAL COURSE: The patient was admitted to the telemetry floor for further workup. Supplemental oxygen. and pulmonary toilet provided as needed. Seizure precaution instituted and maintained. First dose of Keppra was given in the emergency department. Neurology consult requested. Neurologist recommended continue Keppra. He attributed new onset of seizure to the infectious process. No further seizure activity while in the hospital. Echocardiogram revealed preserved ejection fraction of 50% to 55%, mild left ventricular hypertrophy, and right ventricular systolic pressure of 18. Chest x-ray was positive for cardiomegaly and revealed subsegmental atelectasis of the right lung base. As mentioned above, CT of the head was negative for any acute intracranial pathology and was positive for atrophic chronic changes representing widespread cerebrovascular disease. Strict aspiration precautions were maintained. Nutritional support provided via tube feeding. ID consult requested. ID optimized antibiotic regimen. CT of the head also revealed acute paranasal sinusitis. The patient was on antibiotics for sinusitis and urinary tract infection. The patient also has a stage II sacral decubitus, which was present on admission, not grossly infected as per ID. In view of multiply chronic medical problems, poor quality of life being in chronic vegetative state and end-stage senile dementia, primary medical doctor discussed further goals of care and the option of the comfort care with the family. Family decided on comfort measure and hospice services. The patient was discharged home with hospice services. DISCHARGE DIAGNOSES: 1. New onset of seizures. 2. Probable sepsis. 3. Urinary tract infection. 4. Acute nasal paranasal sinusitis. 5. End-stage senile dementia. 6. Dysphagia , gastrostomy tube. 7. Extensive cerebrovascular disease with history of multiply cerebrovascular accidents. 8. Chronic encephalopathy due to end stage senile dementia as well as history of multiple strokes,. 9. Functional quadriplegia. 10. Stage II sacral decubitus, present on admission. DISCHARGE MEDICATIONS: See medication reconciliation list. DISCHARGE INSTRUCTIONS: Hospice will follow up the patient with comfort measures. Angelina Mock M.D. I have been assigned to dictate discharge summary on this account and I was not involved in the patient's management. Azra CasanovaAdirondack Regional Hospitaltay N.PZuleika DR: KAREN JOB#: [id number] CC: JONATHAN
== END 2016-09-09 16:59 | disposition hospice, home (50) | DRG 100 ==
LOC: EDBD 16:14 → EMR 16:42 → 2E 16:43 → EDBEDREQ 20:28
DX: G40.409 Other generalized epilepsy and epileptic syndromes, not intractable, without status epilepticus (principal); G93.49 Other encephalopathy; A41.9 Sepsis, unspecified organism; R40.3 Persistent vegetative state; L89.153 Pressure ulcer of sacral region, stage 3; R53.2 Functional quadriplegia; N39.0 Urinary tract infection, site not specified; Z43.1 Encounter for attention to gastrostomy; I69.865 Other paralytic syndrome following other cerebrovascular disease, bilateral; D64.9 Anemia, unspecified; K59.00 Constipation, unspecified; F03.90 Unspecified dementia, unspecified severity, without behavioral disturbance, psychotic disturbance, mood disturbance, and anxiety; R13.10 Dysphagia, unspecified; J01.80 Other acute sinusitis; G30.9 Alzheimer's disease, unspecified; F02.80 Dementia in other diseases classified elsewhere, unspecified severity, without behavioral disturbance, psychotic disturbance, mood disturbance, and anxiety; K21.9 Gastro-esophageal reflux disease without esophagitis
CPT/HCPCS: 36415; 70450; 71010; 80048; 80053; 80061; 80300; 81003; 82550; 82962; 83036; 83605; 84443; 84484; 85025; 87070; 87081; 87086; 87181; 87205; 93005; 93306; 94640; 94664; J7620